=== PATIENT | female | born 1940 | race Caucasian/White ===

== ENCOUNTER 2018-11-19 21:00 | Emergency (ER) | payer MEDICARE, BC ==
[~2018-11-19] VITALS: Ht 167.6 cm; Wt 69.0 kg
[2018-11-19 21:02] VITALS: BP 162/86
== END 2018-11-19 21:39 | disposition left against medical advice (07) ==
LOC: ER 21:00
DX: R51 Headache (principal); Z53.21 Procedure and treatment not carried out due to patient leaving prior to being seen by health care provider